=== PATIENT | male | born 1955 | race Caucasian/White ===

== ENCOUNTER → 2017-11-02 | Outpatient (CLI) | payer BC ==
[2017-11-02 14:43] LABS: BASOPHILS ABSOLUTE AUTO 0.01 K/mm3 (0.00-0.23); BASOPHILS PERCENT AUTO 0 % (0-2); EOSINOPHILS ABSOLUTE AUTO 0.11 K/mm3 (0.00-0.68); EOSINOPHILS PERCENT AUTO 2 % (0-6); Hemoglobin 15.8 g/dL (13.5-17.5); IMMATURE GRAN ABSOLUTE AUTO 0.03 K/mm3 (0.00-0.10); IMMATURE GRAN PERCENT AUTO 1 % (0-1); LYMPHOCYTES ABSOLUTE AUTO 1.93 K/mm3 (0.84-5.20); LYMPHOCYTES PERCENT AUTO 31 % (21-46); MONOCYTES ABSOLUTE AUTO 0.43 K/mm3 (0.16-1.47); MONOCYTES PERCENT AUTO 7 % (4-13); Mean Corpuscular HGB 29.2 pg (26.0-34.0); Mean Corpuscular HGB Conc 34.3 g/dL (31.5-36.5); Mean Corpuscular Volume 85 fL (80-100); NEUTROPHILS ABSOLUTE AUTO 3.81 K/mm3 (1.96-9.15); NEUTROPHILS PERCENT AUTO 60 % (41-73); Platelet Count 258 K/mm3 (150-400); RDW Coefficient Variation 13.9 % (11.7-14.2); RDW Standard Deviation 42.7 fL (35.1-46.3); Red Blood Cell Count 5.41 M/mm3 (4.30-5.90); White Blood Cell Count 6.32 K/mm3 (4.00-11.30)
[2017-11-02 14:56] LABS: Alanine Aminotransfer (ALT/SGP 46 U/L (12-78); Albumin, Blood 3.6 g/dL (3.4-5.0); Albumin/Globulin Ratio 1.1 (0.8-1.8); Alk Phos 67 U/L (40-126); Anion Gap 11 mmol/L (6-16); Aspartate Aminotrans (AST/SGOT 24 U/L (12-37); Bilirubin, Total 0.3 mg/dL (0.1-1.0); Blood Urea Nitrogen 16 mg/dL (8-24); CO2, Blood 26 mmol/L (21-32); Calcium, Blood 8.8 mg/dL (8.5-10.1); Chloride, Blood 106 mmol/L (98-108); Globulin, Blood 3.4 g/dL (2.2-4.0); Glomerular Filtration Rate >60 (60-); Glucose, Blood 137 mg/dL (70-99); Potassium, Blood 4.1 mmol/L (3.5-5.5); Sodium, Blood 143 mmol/L (136-145)
[2017-11-02 15:05] LABS: Troponin I <0.017 ng/mL (0.000-0.040)
== END | disposition home or self-care (01) ==
LOC: LAB EV 14:35
PROVIDERS: Physician Assistant
DX: R06.02 Shortness of breath (principal)
CPT/HCPCS: 80053; 83880; 84484; 85025

== ENCOUNTER 2017-11-08 07:26 | Day surgery (SDC) | payer BC | END 2017-11-08 23:51 | disposition home or self-care (01) | LOC: ORSCMMR 07:26 → ORD 08:30 → ORSCMMR 08:30 | PROVIDERS: Internal Medicine Pulmonary Disease | PROC: 0BDG8ZX Extraction of Left Upper Lung Lobe, Via Natural or Artificial Opening Endoscopic, Diagnostic (ICD-10-PCS; principal; 2017-11-08 08:30) | DX: C34.02 Malignant neoplasm of left main bronchus (principal); R06.02 Shortness of breath; R91.8 Other nonspecific abnormal finding of lung field; R06.00 Dyspnea, unspecified; Z87.891 Personal history of nicotine dependence; R53.83 Other fatigue; E66.01 Morbid (severe) obesity due to excess calories; Z68.37 Body mass index [BMI] 37.0-37.9, adult; Z79.899 Other long term (current) drug therapy | CPT/HCPCS: 71045; 87015; 87071; 87102; 87116; 87205; 87206; 88108; 88173; 88305; 88341; 88342; J2250; J2310; J3010; J7120 ==

== ENCOUNTER 2018-10-20 08:41 | Inpatient (IN) | payer BC ==
[~2018-10-20] VITALS: Ht 182.9 cm; Wt 121.0 kg
[2018-10-20] MEDS ORDERED: Ventolin/Prove6.7 GM INH (09:15)
[2018-10-20 09:39] LABS: BASOPHILS ABSOLUTE AUTO 0.03 K/mm3 (0.00-0.23); BASOPHILS PERCENT AUTO 0 % (0-2); EOSINOPHILS ABSOLUTE AUTO 0.09 K/mm3 (0.00-0.68); EOSINOPHILS PERCENT AUTO 1 % (0-6); Hematocrit 42.3 % (37.0-53.0); Hemoglobin 14.3 g/dL (13.5-17.5); IMMATURE GRAN ABSOLUTE AUTO 0.02 K/mm3 (0.00-0.10); IMMATURE GRAN PERCENT AUTO 0 % (0-1); LYMPHOCYTES ABSOLUTE AUTO 1.02 K/mm3 (0.84-5.20); LYMPHOCYTES PERCENT AUTO 13 % (21-46); MONOCYTES ABSOLUTE AUTO 0.79 K/mm3 (0.16-1.47); MONOCYTES PERCENT AUTO 10 % (4-13); Mean Corpuscular HGB 29.2 pg (26.0-34.0); Mean Corpuscular HGB Conc 33.8 g/dL (31.5-36.5); Mean Corpuscular Volume 87 fL (80-100); NEUTROPHILS ABSOLUTE AUTO 6.07 K/mm3 (1.96-9.15); NEUTROPHILS PERCENT AUTO 76 % (41-73); Platelet Count 234 K/mm3 (150-400); RDW Coefficient Variation 13.6 % (11.7-14.2); RDW Standard Deviation 43.3 fL (35.1-46.3); Red Blood Cell Count 4.89 M/mm3 (4.30-5.90); White Blood Cell Count 8.02 K/mm3 (4.00-11.30)
[2018-10-20 09:41] LABS: Source, Urine Clean Catch
[2018-10-20 09:46] LABS: Bilirubin, Urine Neg (Neg); Blood, Urine Neg (Neg); Glucose Qualitative, Urine Neg (Neg); Ketones, Urine Neg (Neg); Leukocyte Esterase, Urine Neg (Neg); Nitrite, Urine Neg (Neg); Protein, Urine 1+ (Neg); Specific Gravity, Urine 1.025 (1.003-1.022); Urobilinogen, Urine NORM (Normal)
[2018-10-20 09:48] LABS: Alanine Aminotransfer (ALT/SGP 33 U/L (12-78); Albumin, Blood 3.3 g/dL (3.4-5.0); Albumin/Globulin Ratio 0.8 (0.8-1.8); Alk Phos 88 U/L (50-136); Anion Gap 7 mmol/L (6-16); Aspartate Aminotrans (AST/SGOT 23 U/L (12-37); Bilirubin, Total 0.4 mg/dL (0.1-1.0); Blood Urea Nitrogen 11 mg/dL (8-24); Bun/Creatinine Ratio 11.9 (12.0-20.0); CO2, Blood 25 mmol/L (21-32); Calcium, Blood 8.6 mg/dL (8.5-10.1); Chloride, Blood 107 mmol/L (98-108); Creatinine, Blood 0.92 mg/dL (0.60-1.20); Glomerular Filtration Rate >60 (60-); Glucose, Blood 125 mg/dL (70-99); Potassium, Blood 3.7 mmol/L (3.5-5.5); Sodium, Blood 139 mmol/L (136-145); Total Protein, Blood 7.3 g/dL (6.4-8.2)
[2018-10-20 09:51] LABS: Appearance, Urine Clear (Clear); Color, Urine Yellow (P-Yellow)
[2018-10-21 05:21] LABS: BASOPHILS ABSOLUTE AUTO 0.01 K/mm3 (0.00-0.23); BASOPHILS PERCENT AUTO 0 % (0-2); EOSINOPHILS PERCENT AUTO 0 % (0-6); Hematocrit 40.6 % (37.0-53.0); Hemoglobin 13.2 g/dL (13.5-17.5); IMMATURE GRAN ABSOLUTE AUTO 0.02 K/mm3 (0.00-0.10); IMMATURE GRAN PERCENT AUTO 0 % (0-1); LYMPHOCYTES ABSOLUTE AUTO 0.52 K/mm3 (0.84-5.20); LYMPHOCYTES PERCENT AUTO 6 % (21-46); MONOCYTES ABSOLUTE AUTO 0.41 K/mm3 (0.16-1.47); MONOCYTES PERCENT AUTO 5 % (4-13); Mean Corpuscular HGB 28.8 pg (26.0-34.0); Mean Corpuscular HGB Conc 32.5 g/dL (31.5-36.5); Mean Corpuscular Volume 89 fL (80-100); Mean Platelet Volume 8.4 fL (9.1-12.4); NEUTROPHILS ABSOLUTE AUTO 7.22 K/mm3 (1.96-9.15); NEUTROPHILS PERCENT AUTO 88 % (41-73); Platelet Count 226 K/mm3 (150-400); RDW Coefficient Variation 13.6 % (11.7-14.2); RDW Standard Deviation 44.4 fL (35.1-46.3); Red Blood Cell Count 4.58 M/mm3 (4.30-5.90); White Blood Cell Count 8.18 K/mm3 (4.00-11.30)
[2018-10-21 05:41] LABS: Anion Gap 7 mmol/L (6-16); Blood Urea Nitrogen 13 mg/dL (8-24); Bun/Creatinine Ratio 13.2 (12.0-20.0); CO2, Blood 28 mmol/L (21-32); Calcium, Blood 8.4 mg/dL (8.5-10.1); Chloride, Blood 105 mmol/L (98-108); Creatinine, Blood 0.98 mg/dL (0.60-1.20); Glomerular Filtration Rate >60 (60-); Glucose, Blood 151 mg/dL (70-99); Potassium, Blood 4.4 mmol/L (3.5-5.5); Sodium, Blood 140 mmol/L (136-145)
[2018-10-23 04:18] LABS: BASOPHILS ABSOLUTE AUTO 0.02 K/mm3 (0.00-0.23); BASOPHILS PERCENT AUTO 0 % (0-2); EOSINOPHILS ABSOLUTE AUTO 0.17 K/mm3 (0.00-0.68); EOSINOPHILS PERCENT AUTO 4 % (0-6); Hematocrit 37.2 % (37.0-53.0); Hemoglobin 12.3 g/dL (13.5-17.5); IMMATURE GRAN ABSOLUTE AUTO 0.01 K/mm3 (0.00-0.10); IMMATURE GRAN PERCENT AUTO 0 % (0-1); LYMPHOCYTES ABSOLUTE AUTO 0.78 K/mm3 (0.84-5.20); LYMPHOCYTES PERCENT AUTO 16 % (21-46); MONOCYTES ABSOLUTE AUTO 0.56 K/mm3 (0.16-1.47); MONOCYTES PERCENT AUTO 12 % (4-13); Mean Corpuscular HGB 29.5 pg (26.0-34.0); Mean Corpuscular HGB Conc 33.1 g/dL (31.5-36.5); Mean Corpuscular Volume 89 fL (80-100); Mean Platelet Volume 8.3 fL (9.1-12.4); NEUTROPHILS ABSOLUTE AUTO 3.24 K/mm3 (1.96-9.15); NEUTROPHILS PERCENT AUTO 68 % (41-73); Platelet Count 211 K/mm3 (150-400); RDW Coefficient Variation 13.4 % (11.7-14.2); RDW Standard Deviation 44.1 fL (35.1-46.3); Red Blood Cell Count 4.17 M/mm3 (4.30-5.90); White Blood Cell Count 4.78 K/mm3 (4.00-11.30)
[2018-10-23] MEDS ORDERED: HYDR1TAB94 PO (09:41)
== END 2018-10-23 09:48 | disposition home or self-care (01) | DRG 342 ==
LOC: ER 08:41 → SURS 11:28
PROVIDERS: Emergency Medicine; Surgery
PROC: 0DJD4ZZ Inspection of Lower Intestinal Tract, Percutaneous Endoscopic Approach (ICD-10-PCS; 2018-10-20)
PROC: 0DTJ0ZZ Resection of Appendix, Open Approach (ICD-10-PCS; principal; 2018-10-20 15:15)
DX: K35.80 Unspecified acute appendicitis (principal); C34.80 Malignant neoplasm of overlapping sites of unspecified bronchus and lung; J44.9 Chronic obstructive pulmonary disease, unspecified; Z87.891 Personal history of nicotine dependence; Z92.21 Personal history of antineoplastic chemotherapy; Z92.3 Personal history of irradiation
CPT/HCPCS: 36415; 74177; 80048; 80053; 83690; 85025; 94640; 94760; 96360; 96361; 99285-25; J0295; J1170; J1650; J1885; J2250; J2370; J2710; J3010; J7030; J7120; Q9967

== ENCOUNTER 2019-05-01 12:45 | Inpatient (IN) | payer BC ==
[~2019-05-01] VITALS: Ht 177.8 cm; Wt 126.8 kg
[~2019-05-01 12:45] MED LIST: HYDR1TAB94 PO; Ventolin/Prove6.7 GM INH
[2019-05-01] MEDS ORDERED: LEVFLO500 PO (12:57)
[2019-05-01 14:49] LABS: BASOPHILS PERCENT AUTO 0 % (0-2); EOSINOPHILS ABSOLUTE AUTO 0.01 K/mm3 (0.00-0.68); EOSINOPHILS PERCENT AUTO 0 % (0-6); Hematocrit 46.3 % (37.0-53.0); Hemoglobin 15.2 g/dL (13.5-17.5); IMMATURE GRAN ABSOLUTE AUTO 0.04 K/mm3 (0.00-0.10); IMMATURE GRAN PERCENT AUTO 1 % (0-1); LYMPHOCYTES ABSOLUTE AUTO 0.15 K/mm3 (0.84-5.20); LYMPHOCYTES PERCENT AUTO 3 % (21-46); MONOCYTES ABSOLUTE AUTO 0.08 K/mm3 (0.16-1.47); MONOCYTES PERCENT AUTO 2 % (4-13); Mean Corpuscular HGB 31.6 pg (26.0-34.0); Mean Corpuscular HGB Conc 32.8 g/dL (31.5-36.5); Mean Corpuscular Volume 96 fL (80-100); Mean Platelet Volume 9.8 fL (9.1-12.4); NEUTROPHILS ABSOLUTE AUTO 4.56 K/mm3 (1.96-9.15); NEUTROPHILS PERCENT AUTO 94 % (41-73); Platelet Count 89 K/mm3 (150-400); RDW Coefficient Variation 15.9 % (11.7-14.2); RDW Standard Deviation 57.3 fL (35.1-46.3); Red Blood Cell Count 4.81 M/mm3 (4.30-5.90); White Blood Cell Count 4.84 K/mm3 (4.00-11.30)
[2019-05-01 15:02] LABS: Alanine Aminotransfer (ALT/SGP 141 U/L (12-78); Albumin, Blood 2.6 g/dL (3.4-5.0); Albumin/Globulin Ratio 0.6 (0.8-1.8); Alk Phos 70 U/L (50-136); Anion Gap 8 mmol/L (6-16); Aspartate Aminotrans (AST/SGOT 56 U/L (12-37); Bilirubin, Total 0.7 mg/dL (0.1-1.0); Blood Urea Nitrogen 14 mg/dL (8-24); Bun/Creatinine Ratio 15.9 (12.0-20.0); CO2, Blood 27 mmol/L (21-32); Calcium, Blood 9.5 mg/dL (8.5-10.1); Chloride, Blood 102 mmol/L (98-108); Creatinine, Blood 0.88 mg/dL (0.60-1.20); Globulin, Blood 4.4 g/dL (2.2-4.0); Glomerular Filtration Rate >60 (60-); Glucose, Blood 117 mg/dL (70-99); Potassium, Blood 3.3 mmol/L (3.5-5.5); Sodium, Blood 137 mmol/L (136-145); Troponin I <0.015 ng/mL (0.000-0.040)
[2019-05-01 16:36] LABS: PCO2 Arterial 30.8 mmHg (35-45); pH Blood Arterial 7.51 (7.35-7.45)
[2019-05-01 17:15] LABS: Source, Urine Voided
[2019-05-01 17:19] LABS: Bilirubin, Urine Neg (Neg); Blood, Urine 3+ (Neg); Glucose Qualitative, Urine Neg (Neg); Ketones, Urine 3+ (Neg); Leukocyte Esterase, Urine Neg (Neg); Nitrite, Urine Neg (Neg); Protein, Urine 3+ (Neg); Specific Gravity, Urine 1.015 (1.003-1.022); Urobilinogen, Urine NORM (Normal)
[2019-05-01 17:29] LABS: Appearance, Urine Clear (Clear); Color, Urine Yellow (P-Yellow)
[2019-05-01 17:30] LABS: White Blood Cells, Urine 0-2 /hpf (0-5)
[2019-05-01 17:31] LABS: Bacteria Few /hpf; Mucus Light (0-Heavy); Squamous Epithelial Cells Not Seen /hpf (Few)
[2019-05-01] MEDS ORDERED: DEXA4 PO (22:34)
[2019-05-01] MEDS ORDERED: BUDE10.22 INH (22:35)
[2019-05-01] MEDS ORDERED: IBUP800 PO (22:37)
[2019-05-01] MEDS ORDERED: NATURE'S TEARS15 M1 BOTHEYES (22:38)
[2019-05-01] MEDS ORDERED: MIRALAX17 GM PO (22:39)
[2019-05-01] MEDS ORDERED: MELATONIN5 M1 PO (22:40)
[2019-05-02 01:46] LABS: Adenovirus Not Detected (NOT DETECT); Bordetella pertussis Not Detected (NOT DETECT); Chlamydophila pneumoniae Not Detected (NOT DETECT); Coronavirus 229E Not Detected (NOT DETECT); Coronavirus HKU1 Not Detected (NOT DETECT); Coronavirus NL63 Not Detected (NOT DETECT); Coronavirus OC43 Not Detected (NOT DETECT); Human Metapneumovirus Not Detected (NOT DETECT); Human Rhinovirus/Enterovirus Not Detected (NOT DETECT); Influenza A Not Detected (NOT DETECT); Influenza A/2009-H1 Not Detected (NOT DETECT); Influenza A/H1 Not Detected (NOT DETECT); Influenza A/H3 Not Detected (NOT DETECT); Influenza B Not Detected (NOT DETECT); Mycoplasma pneumoniae Not Detected (NOT DETECT); Parainfluenza Virus 1 Not Detected (NOT DETECT); Parainfluenza Virus 2 Not Detected (NOT DETECT); Parainfluenza Virus 3 Not Detected (NOT DETECT); Parainfluenza Virus 4 Not Detected (NOT DETECT); Respiratory Syncytial Virus Not Detected (NOT DETECT)
--- NOTE | 2019-05-02 05:02 | NUR ---
SHIFT SUMMARY PATIENT IS ALERT AND ORIENTED. ARRIVED TO ROOM VIA STRETCHER AND AMBULATED TO THE BED. PATIENT ON 2L NASAL CANNULA, PATIENT IS SOB WITH EXERTION. MAINTENANCE FLUIDS STARTED. PATIENT USES URINAL AT BEDSIDE. PATIENTS IS STAYING AT BEDSIDE. NO NEW CHANGES THROUGHOUT THE NIGHT. VITALS STABLE, FEVER HAS GONE DOWN.
[2019-05-02 05:44] LABS: BASOPHILS ABSOLUTE AUTO 0.01 K/mm3 (0.00-0.23); BASOPHILS PERCENT AUTO 0 % (0-2); EOSINOPHILS PERCENT AUTO 0 % (0-6); Hematocrit 36.1 % (37.0-53.0); Hemoglobin 11.9 g/dL (13.5-17.5); IMMATURE GRAN ABSOLUTE AUTO 0.03 K/mm3 (0.00-0.10); IMMATURE GRAN PERCENT AUTO 1 % (0-1); LYMPHOCYTES ABSOLUTE AUTO 0.09 K/mm3 (0.84-5.20); LYMPHOCYTES PERCENT AUTO 2 % (21-46); MONOCYTES ABSOLUTE AUTO 0.09 K/mm3 (0.16-1.47); MONOCYTES PERCENT AUTO 2 % (4-13); Mean Corpuscular HGB 31.6 pg (26.0-34.0); Mean Corpuscular Volume 96 fL (80-100); Mean Platelet Volume 10.4 fL (9.1-12.4); NEUTROPHILS ABSOLUTE AUTO 3.52 K/mm3 (1.96-9.15); NEUTROPHILS PERCENT AUTO 94 % (41-73); Platelet Count 75 K/mm3 (150-400); RDW Coefficient Variation 16.5 % (11.7-14.2); RDW Standard Deviation 58.3 fL (35.1-46.3); Red Blood Cell Count 3.76 M/mm3 (4.30-5.90); White Blood Cell Count 3.74 K/mm3 (4.00-11.30)
[2019-05-02 06:15] LABS: Alanine Aminotransfer (ALT/SGP 113 U/L (12-78); Albumin/Globulin Ratio 0.6 (0.8-1.8); Alk Phos 61 U/L (50-136); Anion Gap 8 mmol/L (6-16); Aspartate Aminotrans (AST/SGOT 52 U/L (12-37); Bilirubin, Total 0.8 mg/dL (0.1-1.0); Blood Urea Nitrogen 13 mg/dL (8-24); Bun/Creatinine Ratio 15.5 (12.0-20.0); CO2, Blood 23 mmol/L (21-32); Calcium, Blood 8.3 mg/dL (8.5-10.1); Chloride, Blood 108 mmol/L (98-108); Creatinine, Blood 0.84 mg/dL (0.60-1.20); Globulin, Blood 3.6 g/dL (2.2-4.0); Glomerular Filtration Rate >60 (60-); Glucose, Blood 156 mg/dL (70-99); Sodium, Blood 139 mmol/L (136-145); Total Protein, Blood 5.6 g/dL (6.4-8.2)
[2019-05-02 12:56] LABS: Source, Urine Clean Catch
[2019-05-02 13:00] LABS: Appearance, Urine Clear (Clear); Bilirubin, Urine Neg (Neg); Blood, Urine 3+ (Neg); Color, Urine Yellow (P-Yellow); Glucose Qualitative, Urine 1+ (Neg); Ketones, Urine Neg (Neg); Leukocyte Esterase, Urine Neg (Neg); Nitrite, Urine Neg (Neg); Protein, Urine 2+ (Neg); Urobilinogen, Urine NORM (Normal); pH, Urine 6.5 (5.0-8.0)
[2019-05-02 13:06] LABS: Bacteria Rare /hpf; Mucus Light (0-Heavy); Red Blood Cells, Urine 0-2 /hpf (0-2); Squamous Epithelial Cells Rare /hpf (Few); White Blood Cells, Urine 0-2 /hpf (0-5)
[2019-05-02 17:06] LABS: Vancomycin, Trough 10.1 ug/mL (5.0-10.0)
--- NOTE | 2019-05-02 17:48 | NUR ---
SHIFT SUMMARY THE PATIENT PRESENTED THIS AM WITH VITAL WNL, WITH LUNG SOUNDS THAT WERE COARSE EX WHEEZES, AND A&O X4. THE PATIENT IS INDEPENDENT IN HIS ROOM. THE PATIENT SPOUSE IS IN THE ROOM WITH HIS, AND HELP THE PATIENT OR CALLS FOR HELP. THE PATIENT SLEPT MOST OF THE SHIFT AND IS NOW UP IN HIS CHAIR FOR DINNER. WILL CONTINUE TO MONITOR.
--- NOTE | 2019-05-03 04:37 | NUR ---
SHIFT SUMMARY PATIENT IS ALERT AND ORIENTED. ON 2L NASAL CANNULA. PATIENTS IS AT BEDSIDE. PATIENT USES URINAL AT BEDSIDE. PATIENT STATES HE IS FEELING MUCH BETTER. NO NEW CHANGES THROUGHOUT THE NIGHT. VITAL SIGNS STABLE.
[2019-05-03 05:12] LABS: BASOPHILS PERCENT AUTO 0 % (0-2); EOSINOPHILS PERCENT AUTO 0 % (0-6); Hematocrit 33.5 % (37.0-53.0); Hemoglobin 10.9 g/dL (13.5-17.5); IMMATURE GRAN ABSOLUTE AUTO 0.03 K/mm3 (0.00-0.10); IMMATURE GRAN PERCENT AUTO 1 % (0-1); LYMPHOCYTES ABSOLUTE AUTO 0.17 K/mm3 (0.84-5.20); LYMPHOCYTES PERCENT AUTO 5 % (21-46); MONOCYTES ABSOLUTE AUTO 0.13 K/mm3 (0.16-1.47); MONOCYTES PERCENT AUTO 4 % (4-13); Mean Corpuscular HGB 30.4 pg (26.0-34.0); Mean Corpuscular HGB Conc 32.5 g/dL (31.5-36.5); Mean Platelet Volume 9.1 fL (9.1-12.4); NEUTROPHILS ABSOLUTE AUTO 3.12 K/mm3 (1.96-9.15); NEUTROPHILS PERCENT AUTO 90 % (41-73); Platelet Count 82 K/mm3 (150-400); RDW Standard Deviation 55.1 fL (35.1-46.3); Red Blood Cell Count 3.59 M/mm3 (4.30-5.90); White Blood Cell Count 3.45 K/mm3 (4.00-11.30)
[2019-05-03 05:24] LABS: Mean Corpuscular Volume 93 fL (80-100)
[2019-05-03 05:37] LABS: Anion Gap 6 mmol/L (6-16); Blood Urea Nitrogen 13 mg/dL (8-24); Bun/Creatinine Ratio 14.3 (12.0-20.0); CO2, Blood 26 mmol/L (21-32); Calcium, Blood 8.4 mg/dL (8.5-10.1); Chloride, Blood 107 mmol/L (98-108); Creatinine, Blood 0.91 mg/dL (0.60-1.20); Glomerular Filtration Rate >60 (60-); Glucose, Blood 131 mg/dL (70-99); Potassium, Blood 3.8 mmol/L (3.5-5.5); Sodium, Blood 139 mmol/L (136-145)
--- NOTE | 2019-05-03 18:34 | NUR ---
SHIFT SUMMARY PATIENT A&O X4. SBA TO BATHROOM. DENIES ANY PAIN OR NAUSEA. C/O SOB T/O SHIFT. O2 @ 2-3L NC. OXYGEN MOVED UP TO 3L AFTER PATIENT WAS UP TO SHOWER. PATIENT DOES NOT ALWAYS KEEP OXYGEN ON. AT THE BEDSIDE. NO ACUTE CHANGES THIS SHIFT. RN WILL CONTINUE TO MONITOR.
--- NOTE | 2019-05-04 05:50 | NUR ---
SHIFT SUMMARY PATIENT IS ALERT AND ORIENTED. PATIENT WAS ON 3L NASAL CANNULA MOST OF THE NIGHT. PATIENT WOKE UP AROUND 0030 W/ INCREASED SOB. VITALS OBTAINED, SATS WERE 88%. LUNGS WERE TIGHT AND AND HAD CRACKLES. INCREASED OXYGEN TO 4L NASAL CANNULA. CALLED RT, THEY GAVE A BREATHING TX. NOTIFIED THE HOSPITALIST OF CHANGES. NEW ORDERS FOR LASIX, DC NS 100ML/HR, AND AM CHEST X-RAY 2-VIEW. PATIENT'S SATS INCREASED TO MID 90'S. SOB DECREASED. PATIENT SLEPT SOME. NO OTHER CHANGES NOTED.
--- NOTE | 2019-05-04 12:52 | NUR ---
Attempted to see pt. He is sleeping soundly and did not wake when I entered the room. I will try again later.
--- NOTE | 2019-05-04 15:00 | NUR ---
INITIAL PAL CARE ASSESSMENT AND VISIT: PAL CARE referral rec'd from RT caring for pt this weekend. Isiah is a 63 yr old male, who was dx with small cell lung cancer approx 18 mo ago per pt/. He has undergone chemotherapy regularly since then & has completed 14 to 15 cranial radiation txs for brain his mets. I introduced myself to pt and sitting at bedside. Isiah is lying supine in bed, with minimal hob elevation. I can hear wheeze with respiration and conversation and note moderate dyspnea with conversation. He has O2 via nc on and a fan on bedside table. He states raising the hob helps but he is hoping to sleep after a fairly sleepless night. staying over and both were awake most of the night. Isiah denies pain but feels some anxiety with his dyspnea, especially when it increases at night. He does not have oxygen at home but both Isiah and Giovannyriley acknowledge he may need it. We discussed his illness and he volunteered that he is not afraid to , that he knows he will not survive his cancer and that when the time comes he wants to be home sitting on his porch and not spend his last days in the hospital. He is anticipating Dr Cali's visit to discuss ongoing Radiation tx. He only has one tx left and he is not certain he wants to do it or if it will make a difference in the long run. He reports that it makes him feel awful afterwards. He is tired of feeling awful. He feels he does not have a "long run" to consider. He is happy with the tx offered/received but that is only expecting a "little more time left" now. He indicated he felt like for the past year, he has been living on borrowed time, and is grateful for the mostly quality time. He states that he recently started a new immunosuppressive therapy for his cancer and he wants to continue with that for now. He brought up the topic of Hospice and says when the time comes he wants to be home on his porch, medicated for comfort and have hospice there to help him and his . His parents both had hospice care so he and are familiar with that philosophy and what the care looks like in the home. Isiah inquired whether hospice is covered by insurance & "what does it cost". I recommended that they call BC/BS member services and ask what his hospice benefit was sometime in the next week to answer that question. I educated on the routine hospice benefits to include visits, medications for comfort, DME and multiple disiplines involved in care as needed. We discussed code status definitions and pt's current code status. He confirms that at this time, he would want CPR and/or intubation as needed, primarily because he does not want to in the hospital. He understands that at the point he feels that he would like EOL care/hospice, he would no longer be a FULL code status. After our lengthy conversation and my assessment we discussed his reported anxiety & possible nonpharmacological interventions &/or prn rx to help. Pt would like a prn rx for anxiety. Called Dr with report & discussed my visit with his RN. VO for ativan, 1mg PO bid prn anxiety obtained & entered. Planned with pt & to return tomorrow and continue advanced care planning conversation if desired.
--- NOTE | 2019-05-04 18:20 | NUR ---
SHIFT SUMMARY. A&OX4, SBA TO BATHROOM, PT CALLS APPROPRIATELY. AT BEDSIDE MOST OF SHIFT. PT DENEIES PAIN, SOB, N/V. PT DID HAVE QUESTIONS ABOUT WHAT HOSPICE AND COMFORT CARE WERE. PT REPORTED ALL HIS QUESTIONS WERE ANSWERED. NO OTHER CHANGES.
[2019-05-04 18:21] LABS: Vancomycin, Trough 13.3 ug/mL (5.0-10.0)
--- NOTE | 2019-05-04 19:37 | NUR ---
ASSUMED CARE OF THE PATIENT: PATIENT RESTING IN BED, IV INFUSING WELL, JUST FINISHED HELPING HIM USE THE URINAL. IS VERY ATTENTIVE AND PRODUCTIVE IN HIS CARE. SHE REPORTS THAT HE IS STILL URINATING ALOT SINCE THE LASIX THAT WAS GIVEN EARLY THIS MORNING, AND WONDERS WHEN IT WILL SLOW DOWN. SHE STATES HE HAS URINATED ALMOST EVERY HALF HOUR TO HOUR AT TIMES AND THEY BOTH HAVE NOT GOTTEN ANY SLEEP. INFORMED HER THAT DEPENDING ON THE AMOUNT OF FLUID HE HAS BUILT UP WILL DEPEND, EMPTIED 1400 OF YELLOW CLEAR URINE FROM URINALS, MERCEDES HUNG BUT ZOSYN NOT FINISHED AT THIS TIME, WILL SWITCH OUT WHEN COMPLETED. LUNG SOUNDS DIMINSIHED WITH WHEEZES IN THE UPPER LOBES, COUGH IS PRODUCTIVE JUST NOT WITH SPUTUM, MORE A SILIVA THICKNESS NOTED, NO SAMPLE WAS OBTAINED. SOB WITH MINIMAL EXERTION NOTED. WILL CONTINUE TO MONITOR
--- NOTE | 2019-05-05 05:26 | NUR ---
SHIFT SUMMARY: CATHIE HAD A ROUGH START TO THE SHIFT. HIS SOB IS SEVERE, EVEN ROLLING OVER IN BED TO GETTING UP TO SIDE OF THE BED, HE LOOSES HIS BREATH AND CAN NOT CATCH IT. IS PRESENT IN THE ROOM AND ASSIST IN HIS ADL CARE. BOTH HAVE BEEN VERY EXHAUSTED AND REQUEST TO ALLOW THEM TO SLEEP MUCH POSSIBLE DUE TO BEING UP FOR 2 DAYS. CATHIE REQUESTED TO HAVE ATIVAN BEFORE BED, TO HELP HIM SLEEP. THIS WAS GIVEN WHICH CAUSED HIM TO BECOME SLIGHTLY CONFUSED, POSSIBLY DUE TO NO SLEEP AND MEDICATION, HE WAS EASILY ORIENTED EACH TIME, AND COOPERATIVE. HE SLEPT HARD BETWEEN TASK. HE CONTINUED TO HAVE URINE OUTPUT THROUGHOUT THE NIGHT, ASSISTED WITH URINAL. LUNGS REMAINED UNCHANGED FROM THE DIMIINISHED AND WHEEZES THEY WERE. IV REMAINED PATENT, VS STABLE, NO PAIN NOTED. NO OTHER ACUTE CHANGES TO NOTE. WILL REPORT TO DAY SHIFT RN.
--- NOTE | 2019-05-05 09:00 | NUR ---
PULMONARY CONSULT CALLED IN TO OFFICE AT THIS TIME.
--- NOTE | 2019-05-05 10:30 | NUR ---
PAL CARE VISIT. Case conference with RN & review of EMR prior to visit. Entered room quietly as pt still trying to sleep. Upon entering room, I can hear pt grunting with respiratory effort. confirms that pt is having a harder time breathing and needing more O2 from yesterday. She reports that licensed psychologist director has been consulted and EMR confirms orders and calls for Dr Batista to see pt today. Pt is restless in the bed, despite being asleep. He did not wake while I was there. reports that pt is a little groggy, "loopy" until fully awake so I planned with her to return this afternoon. reports that the ativan was helpful with anxiety and that pt got first sleep in a long time during the night, despite increased dyspnea. She mentioned his sleep deprivation "for days", even prior to hospital stay. She is hopeful Dr Batista will have some interventions, medications that will help Isiah more. Discussed home O2 EVAL with hospitalist and patient care coordinator. Discussed current status with hospitalist. CXR is worsening since admission. Discussed pt's status with our Strategic Development Manager who plans to visit pt also.
--- NOTE | 2019-05-05 15:49 | NUR ---
PT'S O2 REQUIREMENTS HAVE INCREASED FROM 3L NC AT BEGINING OF SHIFT TO 6L NC AT THIS TIME. RT HAS HAD TO INCREASE O2 BY 1L WITH EACH OF THE [address] SHIFT. DR. BA IS AWARE. .
--- NOTE | 2019-05-05 18:50 | NUR ---
Pal Spiritual Care inital visit: Met with Kirk and his janine , "Tere" at bedside. Both became tearful when talking about Isiah's strong desire to be home, "doing what I want to do. I don't want to in the hospital. I want to at home." That said, he is not convinced he is dying. He knows he is getting worse, but states he is holding out hope current tereatments will return him to baseline. He beleives he will be able to return home "to mow my lawn and water my yard." Tere responded well to me and states "I want whatever he wants." Both seem tired. They are not sabianist, but responded well to affirmation of obvious love and strength. Isiah is waiting for a clear path. "I just want someone to tell me if I am getting better or not." I will remain available.
--- NOTE | 2019-05-05 19:20 | NUR ---
SHIFT SUMMARY. PT AND JOS EDUCATED ON DNR VS. FULL CODE, THEY HAD REQUESTED MORE INFORMATION. PT AND ACKNOWLEDGED UNDERSTANDING OF WHAT EACH ENTAILED. PT STATED THAT HE WANTS TO GO HOME WITH HOSPICE ONCE HIS BREATHING IS STABLE ENOUGH. PT ALSO VOICED THAT HE WANTS TO BE A DNR IN THE SINCE THAT IF HE IS FOUND HE DOES NOT WANT HEROIC EFFORTS TO RESESITATE. PT AND MAIN GOAL IS TO GO HOME, WHERE HE CAN BE COMFORTABLE. PT AND WANT TO THINK ABOUT CODE STATUS AND POSSIBLE HOSPICE REFERAL OVERNIGHT, THEY REPORT THAT THEY HAVE RECIEVED ALOT OF INFORMATION THIS AFTERNOON. PT IS NOW ON AIRVO AFTER SEEN BY DR. BA, STEROID FREQUENCY HAS INCREASED FROM DAILY TO TID.
[2019-05-06 05:31] LABS: Creatinine, Blood 0.76 mg/dL (0.60-1.20); Vancomycin, Trough 15.4 ug/mL (5.0-10.0)
--- NOTE | 2019-05-06 05:49 | NUR ---
SHIFT SUMMARY: CATHIE HAS HAD AN INTERESTING NIGHT. HE STARTED OFF ON THE AIRVO BREATHER MACHINE, THIS CAUSED HIM TO HAVE CLAMMY COLD SPELLS, CAUSING HIM TO SWEAT ONLY IN THE UPPER CHEST AND FACE AREA. SKIN WAS ICE COLD TO THE TOUCH BUT HE WAS COLD AND KEPT COVERED UP. SPOKE TO RT REGARDING THIS SHE SAID SHE NEVER HEARD OF IT, SPOKE TO PROGRAMMING INTERNSHIP ALSO WHO ALSO NEVER HEARD OF IT. CATHIE REPORTED HE IS FEELING JUST FINE OTHER THEN THE SWEATING. IV INFUSED WITH NO DIFFICULTY, VS REMAINED STABLE, AND UNCHANGED. MEDS GIVEN PER EMAR. LUNG SOUNDS STILL DIMINISHED THROUGOUT, COUGH OCCATIONAL. WILL REPORT TO DAY SHIFT RN.
--- NOTE | 2019-05-06 12:06 | NUR ---
Attempted to see pt twice this am. RT caring for pt earlier and animal skinner seeing pt on second attempt. I will try again after lunch.
--- NOTE | 2019-05-06 15:31 | NUR ---
Palliative Care follow up visit. Pt's RN in room explaining need for sputum collection in sterile speci cup left for pt to use when possible. Pt states he is unable to get sputum up most of the time. He had a coughing spell while eating and talking that took some time to settle down. He reports much better relief of dyspnea using airvo and verbalizes understanding of need for home O2 most likely. Pt and report better sleep again last night. Pt continues to express understanding that his time is limited due to cancer and metastasis. He does not plan to finish up the one remaining cranial radiation tx but does want to continue/complete the immune therapy that he had just started prior to his admission. He will let his drs know when he would like hospice involved and he would like to be home when that time comes. He states he is having no pain or discomfort. His states he has a high pain tolerance. I encouraged him to report discomfort if noted and he agreed he did not want to suffer if he is experiencing pain and distress. Pt continues to have a good appetite and is good humored despite guarded health status and poor prognosis. Will plan for Palliative Care to remain available for advanced care planning and s/s management as indicated.
--- NOTE | 2019-05-06 19:11 | NUR ---
PT. LYING IN BED WATCHING TV SPOUSE AT BEDSIDE. NO NOTEABLE CHANGES THIS SHIFT. PT. EATING WELL AND WENT TO SHOWER TODAY.
--- NOTE | 2019-05-06 20:20 | NUR ---
PT WATCHING TV, WIDE AWAKE. STATES HE IS FEELING BETTER AND WOULD LIKE TO BE SL OFF HIS IV SO HE CAN GO TO THE BATHROOM. SL HIM TILL MIDNIGHT WHEN MEDS ARE DO. LUNG SOUNDS DIMINISHED THROUGHOUT WITH WHEEZES IN UPPER LOBES, STILL NOT COUGHING UP SPUTUM JUST SILIVA. VS WITH IN NORMAL FOR THE PATIENT WITH RESP UP TO 25, TEMP STILL IN THE 99 BUT PATIENT HAS ROOM WARM. DENIES ANY OTHER NEEDS, WANT 2100 MELATONIN TO BE GIVEN AROUND 2200 FOR SLEEP WILL DO THAT. WILL CONTINUE TO MONITOR.
--- NOTE | 2019-05-07 06:48 | NUR ---
SHIFT SUMMARY: PATIENT HAD A BETTER NIGHT THEN PREVIOUS NIGHT. HE STAYED UP WATCHING TV UNTIL 2200 THEN TOOK HIM MELATONIN AND FELL ASLEEP. HE REMAINED ASLEEP EXCEPT FOR WHEN MEDS WERE NEEDING ADMINISTRATED. IV INFUSED WITH NO PROBLEMS, MEDS GIVEN PER EMAR, DENIED PAIN OR DISCOMFORT. SATS REMAINED WITH IN NORMAL LIMITS. REMAINED COMFORTABLE IN ROOM WELL. NO ACUTE CHANGES OCCURRED THIS SHIFT. WILL REPORT TO DAY SHIFT RN.
--- NOTE | 2019-05-07 16:53 | NUR ---
SHIFT SUMMARY NO CHANGES IN ASSESSMENT AT THIS TIME. PT CONTINUED ON AIRVO FIO2 46, LPM 35. PT ABLE TO TRANSITION TO HIGH FLOW NC ON 10L NEEDED FOR SHORT PERIODS OF TIME. PRIMARILY FOR EATING & BATHROOM USE. PT HAS LOW GRADE FEVER AT 99.5 F. TREATED WITH TYLENOL & A COOL CLOTHE. OTHER VITALS STABLE. WILL CONTINUE TO MONITOR UNTIL TURNOVER IS COMPLETE.
--- NOTE | 2019-05-07 17:17 | NUR ---
Pal Spiritual Care routine visit: Met with , Tere in [facility]. Pt sleeping soundly. Tere tells me that Isiah is improving and the hope is for him to return home in a day or two. She responds well to gentle encouragement and affirmation of love. Licensed Staff [employer] will remain available.
--- NOTE | 2019-05-08 03:57 | NUR ---
SHIFT SUMMARY NO ACUTE CHANGES. PT HAS SLEPT MOST OF THE NIGHT. HE DENIES PAIN. PT REQUESTED TO BE TAKEN OFF THE AEROFLOW. THE PRONGS WERE NOT IN HIS NOSE CORRECTLY THUS CAUSING THE BIOX MACHINE TO BEEP. HE BECAME FRUSTRATED WITH THE BEEPING AND ASKED TO BE PLACED BACK ON HIS HIGH FLOW NC, DEPSITE EXPLANATION OF WHY THE MACHINE WAS BEEPING. PT HAS BEEN INDEPENDENT IN THE ROOM MOSTLY, PT ASSIST WITH A LOT OF HIS ADLS. IV ABX INFUSED ORDERED. RESTFUL NIGHT. PT CALLS APPROPRIATELY. WILL CONTINUE TO MONITOR AND REPORT TO ONCOMING RN.
[2019-05-08 05:35] LABS: Vancomycin, Trough 14.9 ug/mL (5.0-10.0)
--- NOTE | 2019-05-08 16:07 | NUR ---
PATIENT A/OX4, UP WITH SBA TO RESTROOM. AT BEDSIDE FOR MOST OF THE SHIFT. PATIENT ON AIRVO OR HIGH FLOW 02 AT 10L. CONT PULSE OX AT BEDSIDE. PATIENT BECAME DIAPHORETIC AFTER LUNCH TODAY WITHOUT OTHER SYMPTOMS. PATIENT WAS AFEBRILE, DENIES ANY NAUSEA OR PAIN. PATIENT INSTRUCTED TO NOTIFY NURSE WITH ANY OTHER SYMPTOMS OR WORSENING ORF SYMPTOMS. IBUPROFEN AND TYLENOL GIVEN TODAY TO TREAT BELLE. PATIENT CALLS APPROPRIATELY FOR ASSISTANCE.
--- NOTE | 2019-05-08 17:01 | NUR ---
SHIFT SUMMARY NO CHANGES IN PT ASSESSMENT. VSS. PT IV DRESSING CHANGED THIS SHIFT. PT RESTING IN ROOM SATING AT 88-91% ON 10L HIGH FLOW NC. PT DENIES NEEDS AT THIS TIME. WILL CONTINUE TO MONITOR UNTIL TURNOVER IS COMPLETE.
[2019-05-09 06:42] LABS: BASOPHILS ABSOLUTE AUTO 0.01 K/mm3 (0.00-0.23); BASOPHILS PERCENT AUTO 0 % (0-2); EOSINOPHILS ABSOLUTE AUTO 0.01 K/mm3 (0.00-0.68); EOSINOPHILS PERCENT AUTO 0 % (0-6); Hematocrit 40.1 % (37.0-53.0); Hemoglobin 12.9 g/dL (13.5-17.5); IMMATURE GRAN ABSOLUTE AUTO 0.23 K/mm3 (0.00-0.10); IMMATURE GRAN PERCENT AUTO 5 % (0-1); LYMPHOCYTES ABSOLUTE AUTO 0.14 K/mm3 (0.84-5.20); LYMPHOCYTES PERCENT AUTO 3 % (21-46); MONOCYTES ABSOLUTE AUTO 0.09 K/mm3 (0.16-1.47); MONOCYTES PERCENT AUTO 2 % (4-13); Mean Corpuscular HGB 30.1 pg (26.0-34.0); Mean Corpuscular HGB Conc 32.2 g/dL (31.5-36.5); Mean Corpuscular Volume 94 fL (80-100); Mean Platelet Volume 9.6 fL (9.1-12.4); NEUTROPHILS ABSOLUTE AUTO 3.98 K/mm3 (1.96-9.15); NEUTROPHILS PERCENT AUTO 89 % (41-73); NRBC ABSOLUTE 0.03 K/mm3 (0.00-0.02); NRBC Auto 0.7 /100 WBC (0.0-0.2); Platelet Count 134 K/mm3 (150-400); RDW Coefficient Variation 15.7 % (11.7-14.2); RDW Standard Deviation 53.6 fL (35.1-46.3); Red Blood Cell Count 4.29 M/mm3 (4.30-5.90); White Blood Cell Count 4.46 K/mm3 (4.00-11.30)
[2019-05-09 07:04] LABS: Alanine Aminotransfer (ALT/SGP 100 U/L (12-78); Albumin, Blood 2.3 g/dL (3.4-5.0); Albumin/Globulin Ratio 0.6 (0.8-1.8); Alk Phos 83 U/L (50-136); Anion Gap 4 mmol/L (6-16); Aspartate Aminotrans (AST/SGOT 26 U/L (12-37); Bilirubin, Total 0.4 mg/dL (0.1-1.0); Blood Urea Nitrogen 14 mg/dL (8-24); Bun/Creatinine Ratio 22.1 (12.0-20.0); CO2, Blood 32 mmol/L (21-32); Calcium, Blood 8.6 mg/dL (8.5-10.1); Chloride, Blood 99 mmol/L (98-108); Creatinine, Blood 0.63 mg/dL (0.60-1.20); Globulin, Blood 3.9 g/dL (2.2-4.0); Glomerular Filtration Rate >60 (60-); Glucose, Blood 193 mg/dL (70-99); Potassium, Blood 4.5 mmol/L (3.5-5.5); Sodium, Blood 135 mmol/L (136-145); Total Protein, Blood 6.2 g/dL (6.4-8.2)
[2019-05-09 07:08] LABS: Thyroid Stimulating Hormone 0.817 uIU/mL (0.360-4.800)
--- NOTE | 2019-05-09 07:15 | NUR ---
NOC SHIFT SUMMARY PT IS COOPERATIVE WITH CARE. ADMITTED FOR SEPSIS PNEUMONIA. ON 10L HIGHFLOW O2. SATS IN MID 90'S. AAOX4. HE DID SLEEP MOST OF NIGHT. NO ACUTE CHANGES. VSS. IN ROOM THIS NIGHT. PT APPEARS IN NO ACUTE DISTRESS. REPORT TO ONCOMING RN.
--- NOTE | 2019-05-09 18:00 | NUR ---
NO ACUTE CHANGES NOTED THIS SHIFT, WILL CONTINUE TO MONITOR AND REPORT TO ONCOMING RN
--- NOTE | 2019-05-09 19:34 | NUR ---
RT REPORTS PATIENT STATING LOW 80'S ON 10 L HIGH FLOW AND CHANGED TO AIRVO 40 L 89% FIO2 STATING 91% ON CONTINUOUS PULSE OXIMETRY.
--- NOTE | 2019-05-09 19:53 | NUR ---
RT CHANGED AIRVO RATE FROM 40 L TO 45 L. REPORTS PATIENT WAS STATING BELOW 90% AND NOW 90% ON CONTINUOUS PULSE OXIMETRY. WILL CONTINUE TO MONITOR.
--- NOTE | 2019-05-09 22:57 | NUR ---
PATIENT STATING 97% ON AIRVO 45 L, CONTINUOUS PULSE OXIMETRY. RT NOTIFIED ADND WILL REASSESS FLOW RATE AND DELIVERY METHOD AFTER 23:00.
--- NOTE | 2019-05-09 23:37 | NUR ---
PATIENT NOW ON 15 L O2 OXIMIZER STATING 90%-94% PER RT. OFF THE AIRVO 45 L. BREATHING TX IN PROGRESS. PATIENT AXOX 4. SPOUSE PRESENT IN ROOM. WILL CONTINUE TO MONITOR.
--- NOTE | 2019-05-10 02:52 | NUR ---
CONTINUES TO STAT 95% ON 15 L OXIMIZER SINCE 23:30 05/09. CALL LIGHT IN REACH.
--- NOTE | 2019-05-10 03:40 | NUR ---
SHIFT SUMMARY PT STARTED SHIFT STATING IN THE 80'S ON 10 L HIGH FLOW AND RT INCREASE TO 15 LITERS AND NOT ABLE TO MAINTAIN STATS >90%. RT PUT PATIENT ON AIRVO 40 L AND STILL STATING <90% AND INCREASED TO 45 L AND MAINTAINED 90-97%. PRESENTLY ON 15 L OXIMIZER STATING 90-95%. AXOX 4 AND INDEPENDENT IN THE ROOM. PIV REMAINS INTACT. VSS/AFEBRILE. DENIES PAIN AND N/V. SPOUSE PRESENT IN ROOM T/O SHIFT. CORPORATE CONTROLLER REPORTS FOR DAY RN TO ASK ABOUT ANOTHER CXR RELATED TO PATIENT DESTATING. CALL LIGHT IN REACH. BED IN LOWEST POSITION. WILL CONTINUE TO MONITOR UNTIL DAY SHIFT NURSE ASSUMES CARE.
--- NOTE | 2019-05-10 08:03 | NUR ---
TO IMAGING VIA W/C FOR XCR
--- NOTE | 2019-05-10 08:15 | NUR ---
RETURNED TO ROOM FROM IMAGING
--- NOTE | 2019-05-10 19:07 | NUR ---
PT 02 TITRATED FROM 15L TO 10L OXYMIZER. HE APPEARS TO BE FEELING BETTER, WENT OUTSIDE FOR A SHORT TIME VIA W/C WITH THIS AFTERNOON. NO ACUTE CHANGES NOTED THIS SHIFT, WILL CONTINUE TO MONITOR AND REPORT TO ONCOMING RN
--- NOTE | 2019-05-10 22:58 | NUR ---
PATIENT STATING 94% ON 10 L HIGH FLOW N/C. RT IN FOR BREATHING TX.
--- NOTE | 2019-05-11 03:38 | NUR ---
SHIFT SUMMARY PATIENT HAD NO ACUTE CHANGES OBSERVED THIS SHIFT. AXOX 4 AND SBA. NO IV ACCESS. STATING 90%-94% ON 10 L HIGH FLOW NC. SPOUSE PRESENT T/O SHIFT. VSS/AFEBRILE. DENIES PAIN AND N/V. COOPERATIVE WITH CARE. ABLE TO SLEEP MOST OF THE SHIFT. CALL LIGHT IN REACH. BED IN LOWEST POSITION. WILL CONTINUE TO MONITOR UNTIL DAY SHIFT NURSE ASSUMES CARE.
--- NOTE | 2019-05-12 05:18 | NUR ---
SHIFT SUMMARY: PATIENT HAD NO ACUTE CHANGES THIS SHIFT. AOX3 PLEASANT AND COOPERTTIVE. NO IV ACCESS. STATING IN THE 90% ON 3 L NC. SPOUSE PRESENT T/O SHIFT IN ROOM. VS REMAINED STABLE. NO PAIN OR DISCOMFORT NOTED. ABLE TO SLEEP THROUGHOUT THE SHIFT. MEDS GIVEN PER EMAR. EDUCATED ON HOME OXYGEN, [employer] AND [facility]. ALSO DISCUSSED HOME HEALTH AND BENIFITS, ENCOURAGE THEM TO TALK TO CNC TECHNICIAN FOR THIS. NO OTHER CONCERNS TO NOTE THIS SHIFT. WILL REPORT TO DAY SHIFT RN.
[2019-05-12] MEDS ORDERED: ALBU2.5V5 INH (13:00)
[2019-05-12] MEDS ORDERED: FLUC100 PO (13:00)
[2019-05-12] MEDS ORDERED: ALBU3IS INH (13:02)
[2019-05-12] MEDS ORDERED: ONDA4 PO (13:03)
[2019-05-12] MEDS ORDERED: LORA1 PO (13:03)
--- NOTE | 2019-05-12 15:38 | NUR ---
DISCHARGE INSTRUCTIONS COMPLETED AND DISCUSSED WITH PTS EXPRESSING UNDERSTANDING. TANK OF O2 HERE FROM [facility]. [facility]OM TO NOTIFY THEM OF PTS DISCHARGE. HOME O2 TANK STARTED IN ROOM PRIOR TO LEAVING. PT REPORTED HE FELT JUST FINE WITH IT ON. APPTS MADE OR VERIFIED. BELONGINGS PACKED BY AND TRANSPORTED TO CAR. TO [facility] VIA W/C.
== END 2019-05-12 15:09 | disposition home health service (06) | DRG 871 ==
LOC: ER 12:45 → ERHOLD 16:28 → MEDS 16:28 → ENPENDDIS 05-12 12:14 → EDPENDDIS 05-12 12:14 → MEDS 05-12 15:09
PROVIDERS: Emergency Medicine; Internal Medicine; Pharmacist; ADMIT Internal Medicine
DX: A41.9 Sepsis, unspecified organism (principal); J96.01 Acute respiratory failure with hypoxia; J18.9 Pneumonia, unspecified organism; J44.1 Chronic obstructive pulmonary disease with (acute) exacerbation; C34.90 Malignant neoplasm of unspecified part of unspecified bronchus or lung; C79.31 Secondary malignant neoplasm of brain; J44.0 Chronic obstructive pulmonary disease with (acute) lower respiratory infection; R65.20 Severe sepsis without septic shock; E87.6 Hypokalemia; R73.9 Hyperglycemia, unspecified; T38.0X5A Adverse effect of glucocorticoids and synthetic analogues, initial encounter
CPT/HCPCS: 36415; 36600; 71045; 71046; 80048; 80053; 80202; 81001; 82565; 82803; 83605; 83880; 84145; 84443; 84484; 85025; 87040; 87102; 87486; 87581; 87633; 87798; 88108; 88312; 92610; 93005; 93010; 94640; 94760; 94761; 94762; 96361; 96365; 96372-59; 97162; 97530; 99285-25; A9270; J1650; J1940; J2543; J3370; J7030; J7050